=== PATIENT | female | born 1995 | race Two or more races ===

== ENCOUNTER 2019-03-31 10:40 | Observation (INO) | payer MEDICAID ==
[~2019-03-31 10:40] MED LIST: PREN-153 OR
== END 2019-03-31 11:45 | disposition home or self-care (01) | DRG 566 ==
LOC: LDRP 10:40
PROVIDERS: ADMIT Obstetrics & Gynecology; ATTEND Obstetrics & Gynecology
DX: O24.419 Gestational diabetes mellitus in pregnancy, unspecified control (principal); Z3A.29 29 weeks gestation of pregnancy
CPT/HCPCS: 59025; 76818; 81002; 82948; 82962; G0378

== ENCOUNTER 2019-04-03 11:41 | Observation (INO) | payer MEDICAID | END 2019-04-03 12:50 | disposition home or self-care (01) | DRG 566 | LOC: LDRP 11:41 | PROVIDERS: ADMIT Obstetrics & Gynecology; ATTEND Obstetrics & Gynecology | DX: O40.3XX0 Polyhydramnios, third trimester, not applicable or unspecified (principal); Z3A.29 29 weeks gestation of pregnancy | CPT/HCPCS: 59025; 76818; 81002; G0378 ==

== ENCOUNTER 2019-04-06 12:03 | Observation (INO) | payer MEDICAID | END 2019-04-06 14:15 | disposition home or self-care (01) | DRG 563 | LOC: LDRP 12:03 | PROVIDERS: ADMIT Specialist; ATTEND Specialist | DX: O60.03 Preterm labor without delivery, third trimester (principal); O24.419 Gestational diabetes mellitus in pregnancy, unspecified control; O40.3XX0 Polyhydramnios, third trimester, not applicable or unspecified; Z3A.30 30 weeks gestation of pregnancy | CPT/HCPCS: 59025; 76818; 81002; 82962; G0378 ==

== ENCOUNTER 2019-04-09 16:00 | Observation (INO) | payer MEDICAID | END 2019-04-09 17:33 | disposition home or self-care (01) | DRG 566 | LOC: LDRP 16:00 | PROVIDERS: ADMIT Specialist; ATTEND Specialist | DX: O40.3XX0 Polyhydramnios, third trimester, not applicable or unspecified (principal); O00.01 Abdominal pregnancy with intrauterine pregnancy; O26.893 Other specified pregnancy related conditions, third trimester; R11.0 Nausea; Z3A.30 30 weeks gestation of pregnancy | CPT/HCPCS: 59025; 76818; 81002; 82948; 82962; G0378 ==

== ENCOUNTER 2019-04-13 12:40 | Observation (INO) | payer MEDICAID | END 2019-04-13 14:20 | disposition home or self-care (01) | DRG 566 | LOC: LDRP 12:40 | PROVIDERS: ADMIT Obstetrics & Gynecology; ATTEND Obstetrics & Gynecology | DX: O24.419 Gestational diabetes mellitus in pregnancy, unspecified control (principal); O40.3XX0 Polyhydramnios, third trimester, not applicable or unspecified; Z3A.31 31 weeks gestation of pregnancy | CPT/HCPCS: 59025; 76818; 81002; 82948; 82962; G0378 ==

== ENCOUNTER 2019-04-16 14:45 | Observation (INO) | payer MEDICAID | END 2019-04-16 16:45 | disposition home or self-care (01) | DRG 566 | LOC: LDRP 14:45 | PROVIDERS: ADMIT Specialist; ATTEND Specialist | DX: O40.3XX0 Polyhydramnios, third trimester, not applicable or unspecified (principal); O24.419 Gestational diabetes mellitus in pregnancy, unspecified control; Z3A.31 31 weeks gestation of pregnancy | CPT/HCPCS: 59025; 76818; 81002; 82948; 82962; G0378 ==

== ENCOUNTER 2019-04-20 11:45 | Observation (INO) | payer MEDICAID | END 2019-04-20 13:20 | disposition home or self-care (01) | DRG 566 | LOC: LDRP 11:45 | PROVIDERS: ADMIT Obstetrics & Gynecology; ATTEND Obstetrics & Gynecology | DX: O40.3XX0 Polyhydramnios, third trimester, not applicable or unspecified (principal); Z3A.32 32 weeks gestation of pregnancy | CPT/HCPCS: 59025; 76818; 81002; 82948; 82962; G0378 ==

== ENCOUNTER 2019-04-22 14:56 | Observation (INO) | payer MEDICAID | END 2019-04-22 17:25 | disposition home or self-care (01) | DRG 566 | LOC: LDRP 14:56 | PROVIDERS: ADMIT Obstetrics & Gynecology; ATTEND Obstetrics & Gynecology | DX: O24.419 Gestational diabetes mellitus in pregnancy, unspecified control (principal); O40.3XX0 Polyhydramnios, third trimester, not applicable or unspecified; Z3A.32 32 weeks gestation of pregnancy | CPT/HCPCS: 59025; 76818; 81002; 82948; 82962; G0378 ==

== ENCOUNTER 2019-04-25 14:46 | Observation (INO) | payer MEDICAID | END 2019-04-25 15:50 | disposition home or self-care (01) | DRG 566 | LOC: LDRP 14:46 | PROVIDERS: ADMIT Specialist; ATTEND Specialist | DX: O26.893 Other specified pregnancy related conditions, third trimester (principal); Z3A.33 33 weeks gestation of pregnancy | CPT/HCPCS: 76818; G0378; 59025; 81002 ==

== ENCOUNTER 2019-04-28 15:19 | Observation (INO) | payer MEDICAID | END 2019-04-28 17:40 | disposition home or self-care (01) | DRG 566 | LOC: LDRP 15:19 | PROVIDERS: ADMIT Specialist; ATTEND Specialist | DX: O24.419 Gestational diabetes mellitus in pregnancy, unspecified control (principal); Z3A.33 33 weeks gestation of pregnancy | CPT/HCPCS: 59025; 76818; 81002; 82962; G0378 ==

== ENCOUNTER 2019-05-01 11:03 | Observation (INO) | payer MEDICAID | END 2019-05-01 13:00 | disposition home or self-care (01) | DRG 563 | LOC: LDRP 11:03 | PROVIDERS: ADMIT Specialist; ATTEND Specialist | DX: O60.03 Preterm labor without delivery, third trimester (principal); O24.419 Gestational diabetes mellitus in pregnancy, unspecified control; Z3A.33 33 weeks gestation of pregnancy | CPT/HCPCS: 59025; 76818; 81002; 82962; G0378 ==

== ENCOUNTER 2019-05-05 11:21 | Observation (INO) | payer MEDICAID | END 2019-05-05 13:00 | disposition home or self-care (01) | DRG 566 | LOC: LDRP 11:21 | PROVIDERS: ADMIT Specialist; ATTEND Specialist | DX: O26.893 Other specified pregnancy related conditions, third trimester (principal); Z3A.34 34 weeks gestation of pregnancy | CPT/HCPCS: 59025; 76818; 81002; 82962; G0378 ==

== ENCOUNTER 2019-05-08 09:29 | Observation (INO) | payer MEDICAID | END 2019-05-08 12:53 | disposition home or self-care (01) | DRG 566 | LOC: LDRP 10:56 | PROVIDERS: ADMIT Specialist; ATTEND Specialist | DX: O24.419 Gestational diabetes mellitus in pregnancy, unspecified control (principal); Z3A.34 34 weeks gestation of pregnancy | CPT/HCPCS: 59025; 76818; 81002; 82948; 82962; G0378 ==

== ENCOUNTER 2019-05-13 08:31 | Observation (INO) | payer MEDICAID | END 2019-05-13 09:40 | disposition home or self-care (01) | DRG 566 | LOC: LDRP 08:31 | PROVIDERS: ADMIT Obstetrics & Gynecology; ATTEND Obstetrics & Gynecology | DX: O24.419 Gestational diabetes mellitus in pregnancy, unspecified control (principal); Z3A.35 35 weeks gestation of pregnancy | CPT/HCPCS: 76818; 82962; G0378; 59025; 81002; 82948 ==

== ENCOUNTER 2019-05-16 08:15 | Observation (INO) | payer MEDICAID | END 2019-05-16 09:30 | disposition home or self-care (01) | DRG 566 | LOC: LDRP 08:15 | PROVIDERS: ADMIT Obstetrics & Gynecology; ATTEND Obstetrics & Gynecology | DX: O24.419 Gestational diabetes mellitus in pregnancy, unspecified control (principal); O40.3XX0 Polyhydramnios, third trimester, not applicable or unspecified; Z3A.36 36 weeks gestation of pregnancy | CPT/HCPCS: 59025; 76818; 81002; G0378 ==

== ENCOUNTER 2019-05-20 09:44 | Observation (INO) | payer MEDICAID | END 2019-05-20 11:40 | disposition home or self-care (01) | DRG 566 | LOC: LDRP 09:44 | PROVIDERS: ADMIT Obstetrics & Gynecology; ATTEND Obstetrics & Gynecology | DX: O24.419 Gestational diabetes mellitus in pregnancy, unspecified control (principal); Z3A.36 36 weeks gestation of pregnancy | CPT/HCPCS: 59025; 76818; 81002; 82948; 82962; G0378 ==

== ENCOUNTER 2019-05-23 08:20 | Observation (INO) | payer MEDICAID | END 2019-05-23 13:20 | disposition home or self-care (01) | DRG 566 | LOC: LDRP 11:03 | PROVIDERS: ADMIT Obstetrics & Gynecology; ATTEND Obstetrics & Gynecology | DX: O24.419 Gestational diabetes mellitus in pregnancy, unspecified control (principal); Z3A.37 37 weeks gestation of pregnancy | CPT/HCPCS: 59025; 76818; 81002; 82962; G0378 ==